=== PATIENT | female | born 1990 | race Native Hawaiian/Other Pacific Islander ===

== ENCOUNTER 2018-11-22 01:19 | Emergency (ER) | payer OTHER ==
[~2018-11-22] VITALS: Ht 154.9 cm; Wt 76.7 kg
[2018-11-22 02:04] LABS: PLATELET COUNT 351 K/uL (152-353)
[2018-11-22 02:14] LABS: POTASSIUM 3.7 mmol/L (3.6-5.2); SODIUM 138 mmol/L (136-145)
[2018-11-22 04:11] VITALS: BP 129/85; TEMP 98.2
== END 2018-11-22 04:25 | disposition home or self-care (01) ==
LOC: ED 01:19
PROVIDERS: Family Medicine
DX: R07.89 Other chest pain (principal); R00.0 Tachycardia, unspecified; F15.90 Other stimulant use, unspecified, uncomplicated
CPT/HCPCS: 80053; 80307; 81000; 82550; 84484; 85027; 85379; 93005; 96374; 99283; 99284; J3490